=== PATIENT | female | born 1955 | race Caucasian/White ===

== ENCOUNTER 2016-12-24 16:08 | Emergency (ER) | payer MEDICARE, BC ==
[2016-12-24 16:36] VITALS: BP 115/63
--- NOTE | 2016-12-24 19:38 | EDM.PDOC ---
ED HPI LOWER BACK PAIN/INJURY - General Chief Complaint: Back Pain or Injury Stated Complaint: BACK PAIN Time Seen by Provider: 12/24/16 18:57 Source of Information: Reports: Patient, RN notes reviewed - History of Present Illness INITIAL COMMENTS - FREE TEXT/NARRATIVE: 61 year old patient tripped over a dog, slid down a half flight of stairs on her back to landing at base of steps. She has mid and low mid back pain. Hx of prior fusion T7-8 and also Lumbar fusion, hx of multiple low back surgeries all multiple yrs ago. No chest pain or difficulty breathing. Pain does not radiate down her legs. Pain is worse with motion, better to lie still. - Related Data Allergies/ADRs: Allergies Allergy/AdvReac Type Severity Reaction Status Date / Time ketorolac tromethamine Allergy Bleeding Verified 12/24/16 16:14 [From Toradol] metoclopramide HCl Allergy Anxiety Verified 12/24/16 16:14 [From Reglan] prochlorperazine Allergy Anxiety Verified 12/24/16 16:14 [From Compazine] prochlorperazine edisylate Allergy Anxiety Verified 12/24/16 16:14 [From Compazine] prochlorperazine maleate Allergy Anxiety Verified 12/24/16 16:14 [From Compazine] Home Meds: Home Meds Diclofenac Sodium [Voltaren 1% Gel] 09/25/15 [History] Hydrocodone/Acetaminophen [[place] 10-325] 1 tab PO Q4H PRN 09/25/15 [History] Metoprolol Succinate [Toprol XL] 09/25/15 [History] Ondansetron [Zofran ODT] 8 mg PO Q6H PRN 09/25/15 [History] Simvastatin [Zocor] 20 mg PO DAILY 09/25/15 [History] Coumadin. 12/24/16 [History] Cyclobenzaprine [Flexeril] 5 mg PO TID PRN #14 tablet 12/24/16 [Rx] Hydrocodone/Acetaminophen [[place] 5-325 Tablet] 1 each PO Q6HR PRN #14 tablet [Rx] Maxalt. 12/24/16 [History] Past Medical History Other Cardiovascular History: mitral valve prolapse Neurological History: Reports: Migraines - Past Surgical History GI Surgical History: Reports: Appendectomy Female Surgical History: Reports: Hysterectomy Social & Family History - Tobacco Use Smoking Status *Q: Never Smoker - Recreational Drug Use Recreational Drug Use: No ED ROS GENERAL - Review of Systems Review Of Systems: See Below Constitutional: Denies: diaphoresis HEENT: Denies: No symptoms Respiratory: Denies: Shortness of Breath, Pleuritic Chest Pain Cardiovascular: Denies: Chest pain GI/Abdominal: Denies: Abdominal pain, Nausea, Vomiting Musculoskeletal: Reports: back pain. Denies: neck pain, shoulder pain, arm pain , leg pain, joint pain Skin: Denies: bruising, rash, erythema Neurological: Denies: Dizziness, Numbness, Tingling ED EXAM,LOWER BACK PAIN/INJURY - Physical Exam Exam: See Below General Appearance: alert, no apparent distress Eye Exam: bilateral eye: PERRL Ears: normal external exam Nose: normal inspection Throat/Mouth: Normal inspection, Normal oropharynx Head: atraumatic. No: facial swelling Neck: supple, non-tender, full range of motion Respiratory/Chest: no respiratory distress, lungs clear, normal breath sounds Cardiovascular: regular rate, rhythm GI/Abdominal: soft, non tender Back Exam: normal inspection, paraspinal tenderness (L low back), vertebral tenderness (mid thoracic and low lumbar back). No: CVA tenderness (L), CVA tenderness (R) Extremities: normal range of motion, non-tender. No: no pedal edema, pedal edema, leg pain Neurological: alert, no motor/sensory deficits Course - Vital Signs Last Recorded V/S: Last Vital Signs Temp 97.1 F 12/24/16 16:18 Pulse 82 12/24/16 16:18 Resp BP 115/63 12/24/16 16:18 Pulse Ox 98 12/24/16 16:18 - Orders/Labs/Meds Orders: Active Orders 24 hr Category Date Time Status Lumbar Spine 2 or 3V [CR] Stat Exams 12/24/16 19:14 Taken Sacrum Coccyx Min 2V [CR] Stat Exams 12/24/16 19:14 Taken Thoracic Spine 2V [CR] Stat Exams 12/24/16 19:14 Taken - Re-Assessments/Exams Free Text/Narrative Re-Assessment/Exam: 12/24/16 20:22 X rays show no fx. Departure - Departure Time of Disposition: 20:22 Disposition: Home, Self-Care 01 Condition: fair Clinical Impression: Fall Qualifiers: Encounter type: initial encounter Qualified Code(s): W19.XXXA - Unspecified fall, initial encounter Back contusion Qualifiers: Encounter type: initial encounter Laterality: unspecified laterality Qualified Code(s): S20.229A - Contusion of unspecified back wall of thorax, initial encounter Prescriptions: Hydrocodone/Acetaminophen [[place] 5-325 Tablet] 1 each PO Q6HR PRN #14 tablet PRN Reason: Pain Cyclobenzaprine [Flexeril] 5 mg PO TID PRN #14 tablet PRN Reason: Pain Instructions: Fall Prevention in the Home, [id number], Contusion Referrals: PCP,Not In Area [Primary Care Provider] - Forms: ED Department Discharge Additional Instructions: rest back, alternate ice and heat as needed, tylenol for mild to moderate pain or hydrocodone if needed for more severe pain, flexeril if needed for muscle spasm, follow up with your provider if not much better within 3 to5 days as expected. - My Orders Last 24 Hours: My Active Orders 12/24/16 19:14 Lumbar Spine 2 or 3V [CR] Stat Sacrum Coccyx Min 2V [CR] Stat Thoracic Spine 2V [CR] Stat - Assessment/Plan Last 24 Hours: My Active Orders 12/24/16 19:14 Lumbar Spine 2 or 3V [CR] Stat Sacrum Coccyx Min 2V [CR] Stat Thoracic Spine 2V [CR] Stat
--- NOTE | 2016-12-27 08:33 | CR ---
Thoracic spine: AP and lateral views of the thoracic spine were obtained. Infusion catheter is seen entering from the right side. Previous lumbar spine surgery is noted. Diffuse disc space narrowing seen throughout the thoracic spine. Minimal endplate osteophytes are seen anteriorly throughout a large portion of the thoracic spine. Bony structures are osteopenic. Pedicles are intact. Minimal scoliosis is noted. Nothing acute is appreciated. Impression: 1. Previous surgery. Degenerative change and other findings. Nothing acute is definitely appreciated on two-view thoracic spine study. Diagnostic code #2
--- NOTE | 2016-12-27 08:33 | CR ---
Lumbar spine: AP, lateral and coned-down lateral views centered to the lumbosacral junction were obtained. Comparison: No previous study. Mild diffuse posterior disc space narrowing is noted. Minimal retrolisthesis noted of L1 on L2 by several millimeters. Minimal scoliosis is noted. Degenerative apophyseal change is partially visualized within the lower lumbar spine. No fracture or other abnormality is seen. Impression: 1. Degenerative change and minimal scoliosis. 2. Nothing acute is identified on three-view lumbar spine exam. Diagnostic code #2
--- NOTE | 2016-12-27 08:33 | CR ---
Sacrum and coccyx: Three views of the sacrum and coccyx were obtained. Previous lumbar spine surgery is noted. Bony structures are osteopenic. No fracture or other abnormality is seen. Impression: 1. Osteopenia. Previous lumbar spine surgery. 2. Nothing acute is identified on three-view sacrum and coccyx study. Diagnostic code #2
== END 2016-12-24 20:43 | disposition home or self-care (01) ==
LOC: JD.ED 16:08
DX: S20.229A Contusion of unspecified back wall of thorax, initial encounter (principal); Z90.49 Acquired absence of other specified parts of digestive tract; Z90.710 Acquired absence of both cervix and uterus; Z79.899 Other long term (current) drug therapy; Z88.5 Allergy status to narcotic agent; Z88.8 Allergy status to other drugs, medicaments and biological substances; W10.9XXA Fall (on) (from) unspecified stairs and steps, initial encounter
CPT/HCPCS: 72070; 72070-26; 72100; 72100-26; 72220; 72220-26; 99283; 99284

== ENCOUNTER 2017-02-27 10:42 | Emergency (ER) | payer MEDICARE, BC ==
--- NOTE | 2017-02-27 11:33 | EDM.PDOC ---
ED HPI GENERAL MEDICAL PROBLEM - General Chief Complaint: General Stated Complaint: NEED INR AND HEMOGLOBIN CHECKED Time Seen by Provider: 02/27/17 11:28 Source of Information: Reports: Patient History Limitations: Reports: No Limitations - History of Present Illness INITIAL COMMENTS - FREE TEXT/NARRATIVE: 61-year-old female presents for a check of her INR and hemoglobin. Patient is visiting name from [place], [place]. She was in [place] towards the end of last week watching her granddaughter's play tennis match. Patient reports on she noticed gross hematuria. She was seen at the [place] [facility]. She said that she had her INR checked and was found to be 17.2. She was admitted overnight and given vitamin K. Reports that Tuesday morning the hematuria had subsided. Her INR was 1.6 and she was discharge from the hospital. Patient's noticed gross hematuria again on Tuesday afternoon. She again presented to the [place] ER where her INR was checked and it was 1.1. Patient reports the hematuria subsided Tuesday. Patient reports she the ndeveloped hematuria on Tuesday and it has persisted. She is not passing much clots. She reports some minor pelvic cramping that extends into her lower abdomen. She reports that she does feel more fatigued than normal but has not slept well for the past 2 days. She reports nausea but has esophageal spasm and takes Zofran frequently for this. No change. She also reports some sharp pains in her head but she has a history of chronic migraines. She denies any nosebleeds, bleeding from her gums, diarrhea, bloody stools, lightheadedness, dizziness or vomiting. 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 [place] gave her vitamin K when her INR was 17.2. She is currently being bridged with Lovenox as well. Past surgical history includes appendectomy and hysterectomy. Patient states that her high INR was attributed to a migraine medication that she started 3 weeks ago. She does not recall the name of the medication at this time. Bladder Pain Score (Numeric/FACES): 4 Lower Back Pain Score (Numeric/FACES): 5 - Related Data Allergies Allergy/AdvReac Type Severity Reaction Status Date / Time ketorolac tromethamine Allergy Bleeding Verified 02/27/17 11:02 [From Toradol] metoclopramide HCl Allergy Anxiety Verified 02/27/17 11:02 [From Reglan] prochlorperazine Allergy Anxiety Verified 02/27/17 11:02 [From Compazine] prochlorperazine edisylate Allergy Anxiety Verified 02/27/17 11:02 [From Compazine] prochlorperazine maleate Allergy Anxiety Verified 02/27/17 11:02 [From Compazine] Home Meds: Home Meds Diclofenac Sodium [Voltaren 1% Gel] 09/25/15 [History] Hydrocodone/Acetaminophen [[place] 10-325] 1 tab PO Q4H PRN 09/25/15 [History] Metoprolol Succinate [Toprol XL] 09/25/15 [History] Ondansetron [Zofran ODT] 8 mg PO Q6H PRN 09/25/15 [History] Simvastatin [Zocor] 20 mg PO DAILY 09/25/15 [History] Coumadin. 12/24/16 [History] Cyclobenzaprine [Flexeril] 5 mg PO TID PRN #14 tablet 12/24/16 [Rx] Hydrocodone/Acetaminophen [[place] 5-325 Tablet] 1 each PO Q6HR PRN #14 tablet [Rx] Maxalt. 12/24/16 [History] Past Medical History Cardiovascular History: Reports: Blood Clots/VTE/DVT Other Cardiovascular History: mitral valve prolapse Respiratory History: Reports: PE Neurological History: Reports: Migraines - Past Surgical History GI Surgical History: Reports: Appendectomy Female Surgical History: Reports: Hysterectomy Social & Family History - Tobacco Use Smoking Status *Q: Never Smoker - Caffeine Use Caffeine Use: Reports: Coffee - Recreational Drug Use Recreational Drug Use: No ED ROS GENERAL - Review of Systems Review Of Systems: See Below Constitutional: Denies: Fever HEENT: Reports: Other (no bleeding from the gums ). Denies: Nosebleed GI/Abdominal: Reports: Abdominal Pain (minor lower abdominal pain), Nausea ( chronic no change). Denies: Bloody Stool, Diarrhea, Vomiting : Reports: Hematuria, Pain (minor pelvic pain). Denies: Dysuria, Urgency Neurological: Reports: Headache (chronic, no change ) ED EXAM, GENERAL - Physical Exam Exam: See Below Exam Limited By: No Limitations General Appearance: Alert, WD/WN, No Apparent Distress Neck: Normal Inspection, Lymphadenopathy (L) Respiratory/Chest: No Respiratory Distress, Lungs Clear, Normal Breath Sounds Cardiovascular: Normal Peripheral Pulses, Regular Rate, Rhythm, No Murmur GI/Abdominal: Normal Bowel Sounds, Soft Extremities: Normal Inspection Neurological: Alert, Oriented, Normal Cognition Psychiatric: Normal Affect, Normal Mood Skin Exam: Warm, Dry, Ecchymosis (multiple bruises to the bilteral arms likely from recent hospitalization and needle sticks) Course - Vital Signs Last Recorded V/S: Last Vital Signs Temp 36.2 C 02/27/17 10:54 Pulse 64 02/27/17 16:35 Resp 18 02/27/17 16:35 BP 120/46 L 02/27/17 16:35 Pulse Ox 100 02/27/17 16:35 - Orders/Labs/Meds Orders: Active Orders 24 hr Category Date Time Status Implanted Port Access [RC] ASDIRECTED Care 02/27/17 11:36 Active CULTURE URINE [RM] Stat Lab 02/27/17 11:30 Received Labs: Laboratory Tests 02/27/17 02/27/17 02/27/17 Range/Units 11:30 11:51 11:51 WBC 4.09 (3.98-10.04) K/mm3 RBC 3.29 L (3.98-5.22) M/mm3 Hgb 10.7 L (11.2-15.7) gm/L Hct 33.1 L (34.1-44.9) % MCV 100.6 H (79.4-94.8) fl MCH 32.5 H (25.6-32.2) pg MCHC 32.3 (32.2-35.5) g/dl RDW Std Deviation 52.3 H (36.4-46.3) fL Plt Count 175 L (182-369) K/mm3 MPV 10.2 (9.4-12.3) fl Neutrophils % (Manual) 67 H (40-60) % Band Neutrophils % 1 (0-10) % Lymphocytes % (Manual) 23 (20-40) % Atypical Lymphs % 0 % Monocytes % (Manual) 8 (2-10) % Eosinophils % (Manual) 1 (0.7-5.8) % Basophils % (Manual) 0 L (0.1-1.2) Platelet Estimate Adequate Poikilocytosis 1+ slight Anisocytosis 1+ slight PT 13.6 H (8.0-13.0) SECONDS INR 1.23 APTT (22-36) SECONDS Sodium (136-145) mEq/L Potassium (3.5-5.1) mEq/L Chloride (98-107) mEq/L Carbon Dioxide (21-32) mEq/L Anion Gap (5-15) BUN (7-18) mg/dL Creatinine (0.55-1.02) mg/dL Est Cr Clr Drug Dosing mL/min Estimated GFR (MDRD) (>60) mL/min BUN/Creatinine Ratio (14-18) Glucose (80-115) mg/dL Calcium (8.5-10.1) mg/dL Total Bilirubin (0.2-1.0) mg/dL AST (15-37) U/L ALT (14-59) U/L Alkaline Phosphatase (46-116) U/L Total Protein (6.4-8.2) g/dl Albumin (3.4-5.0) g/dl Globulin gm/dL Albumin/Globulin Ratio (1-2) Urine Color Red H (Yellow) Urine Appearance Turbid H (Clear) Urine pH 6.0 (5.0-8.0) Ur Specific [place] 1.020 (1.005-1.030) Urine Protein 3+ H (Negative) Urine Glucose (UA) Negative (Negative) Urine Ketones 1+ H (Negative) Urine Occult Blood 3+ H (Negative) Urine Nitrite Positive H (Negative) Urine Bilirubin 2+ H (Negative) Urine Urobilinogen 2.0 H (0.2-1.0) Ur Leukocyte Esterase 3+ H (Negative) Urine RBC Too numerous to cnt H (0-5) /hpf Urine WBC 40-50 H (0-5) /hpf Ur Epithelial Cells 0-5 (0-5) /hpf Urine Bacteria Moderate H (FEW) /hpf Urine Mucus Not seen (FEW) /hpf 02/27/17 02/27/17 Range/Units 11:51 11:51 WBC (3.98-10.04) K/mm3 RBC (3.98-5.22) M/mm3 Hgb (11.2-15.7) gm/L Hct (34.1-44.9) % MCV (79.4-94.8) fl MCH (25.6-32.2) pg MCHC (32.2-35.5) g/dl RDW Std Deviation (36.4-46.3) fL Plt Count (182-369) K/mm3 MPV (9.4-12.3) fl Neutrophils % (Manual) (40-60) % Band Neutrophils % (0-10) % Lymphocytes % (Manual) (20-40) % Atypical Lymphs % % Monocytes % (Manual) (2-10) % Eosinophils % (Manual) (0.7-5.8) % Basophils % (Manual) (0.1-1.2) Platelet Estimate Poikilocytosis Anisocytosis PT (8.0-13.0) SECONDS INR APTT 41 H (22-36) SECONDS Sodium 145 (136-145) mEq/L Potassium 4.2 (3.5-5.1) mEq/L Chloride 109 H (98-107) mEq/L Carbon Dioxide 28 (21-32) mEq/L Anion Gap 12.2 (5-15) BUN 12 (7-18) mg/dL Creatinine 0.7 (0.55-1.02) mg/dL Est Cr Clr Drug Dosing 74.02 mL/min Estimated GFR (MDRD) > 60 (>60) mL/min BUN/Creatinine Ratio 17.1 (14-18) Glucose 97 (80-115) mg/dL Calcium 8.5 (8.5-10.1) mg/dL Total Bilirubin 0.5 (0.2-1.0) mg/dL AST 20 (15-37) U/L ALT 19 (14-59) U/L Alkaline Phosphatase 53 (46-116) U/L Total Protein 6.3 L (6.4-8.2) g/dl Albumin 3.3 L (3.4-5.0) g/dl Globulin 3.0 gm/dL Albumin/Globulin Ratio 1.1 (1-2) Urine Color (Yellow) Urine Appearance (Clear) Urine pH (5.0-8.0) Ur Specific [place] (1.005-1.030) Urine Protein (Negative) Urine Glucose (UA) (Negative) Urine Ketones (Negative) Urine Occult Blood (Negative) Urine Nitrite (Negative) Urine Bilirubin (Negative) Urine Urobilinogen (0.2-1.0) Ur Leukocyte Esterase (Negative) Urine RBC (0-5) /hpf Urine WBC (0-5) /hpf Ur Epithelial Cells (0-5) /hpf Urine Bacteria (FEW) /hpf Urine Mucus (FEW) /hpf Meds: Medications Discontinued Medications Generic Name Dose Route Start Last Admin Trade Name Freq PRN Reason Stop Dose Admin Heparin Sodium (Porcine) Confirm 02/27/17 16:22 02/27/17 16:23 Heparin Lock Flush 100 Units/Ml Syringe Administered 02/27/17 16:23 Not Given Dose 500 units .ROUTE .STK-MED ONE Heparin Sodium (Porcine) 500 units 02/27/17 16:23 02/27/17 16:25 Heparin Lock Flush 100 Units/Ml Syringe FLUSH 02/27/17 16:24 500 units ASDIRECTED ONE Administration Iopamidol 125 ml 02/27/17 12:46 Isovue-300 (61%) IVPUSH 02/27/17 12:47 ONETIME ONE Sodium Chloride 10 ml 02/27/17 12:47 Saline Flush FLUSH ONETIME PRN Keep Vein Open - Radiology Interpretation Free Text/Narrative:: Retroperitoneal complete ultrasound impression per Dr. Galeas o1. Soft tissue abnormality within the posterior right bladder. This either represents adherent sediment or soft tissue mass. Cystoscopy is recommended to further evaluate. 2. Small abnormality within the mid right kidney of uncertain significance. MRI recommended to further evaluate. - Re-Assessments/Exams Free Text/Narrative Re-Assessment/Exam: 02/27/17 15:05 After multiple attempts, we're unable to establish an IV to get the IV contrast for CT needed. I feel that a CT without contrast would rule out a stone but would not provide additional benefit for ruling out a mass; which is what I'm most concerned about. After discussion with Dr. Gutierrez an ultrasound was decided. Patient's labs that include the following. PT is 13.6, INR is 1.23. White blood cell count is 4.09 with one bands, hemoglobin is 10.7 platelets are 175. Sodium is 145, potassium is 4.2, chloride is 109. Anion gap is 12.2. Creatinine 0.7. UA has positive nitrates, 3+ leukocytes, 1+ ketones, 3+ protein, 2+ bilirubin a moderate amount of bacteria seen on microscopy. Urine was sent for culture. I reviewed the labs and ultrasound results the patients. She is from [facility] and would like to receive further care from there. I informed her of the suspicious finding on ultrasound. She requires a cystoscope to further evaluate this. It is possible she has bladder cancer. We'll treat her with antibiotics for urinary tract infection today. I encouraged her to see her primary care provider as soon as possible she very well may require further imaging such as a CT or MRI. She should then get a referral to urology for a cystoscope. Discharge instructions as documented. Departure - Departure Time of Disposition: 15:38 Disposition: Home, Self-Care 01 Condition: fair Clinical Impression: Urinary tract infection, Hematuria - Discharge Information Instructions: Urinary Tract Infection, Adult, [id number], Hematuria, Adult Referrals: PCP,Not In Area [Primary Care Provider] - Forms: ED Department Discharge Additional Instructions: Rx for macrobid 1 tab PO bid x 7 days given through instymeds Rx for yhdrocodone 10-325 1 tab PO every 4-6 hours Follow up with your primary care provider as soon as you're able to. We recommend further imaging possibly a CT and an MRI. You need a referral to urology for a cystoscope. Your ultrasound reports and disc have been provided for you. Take the Macrobid one tab twice a day for 7 days. This is for urinary tract infection. Take the hydrocodone 10/325 every 4-6 hours as needed for severe pain. Do not drive or operative machinery with intolerance of taking hydrocodone. Please return to the ER should her symptoms change or worsen. - My Orders Last 24 Hours: My Active Orders 02/27/17 11:30 CULTURE URINE [RM] Stat 02/27/17 11:36 Implanted Port Access [RC] ASDIRECTED - Assessment/Plan Last 24 Hours: My Active Orders 02/27/17 11:30 CULTURE URINE [RM] Stat 02/27/17 11:36 Implanted Port Access [RC] ASDIRECTED
[2017-02-27] MEDS ORDERED: Iopamidol 612 MG/ML 150 ML Bottle IVPUSH ONE (12:46)
[2017-02-27] MEDS ORDERED: Sodium Chloride 0.9% 10 ML Syringe FLUSH PRN (12:47)
--- NOTE | 2017-02-27 15:23 | US ---
Limited abdominal ultrasound: Multiple real-time images of the kidneys were obtained as well as bladder. Comparison: No previous study. Soft tissue material is seen within the right posterior bladder. Uncertain if this represents soft tissue mass or adherent sediment. No additional abnormality is seen within the bladder. Kidneys show no hydronephrosis. Small hyperechoic region is seen within the mid right kidney with surrounding hypoechoic appearance. Exact significance is not certain. No additional abnormality is seen within the kidneys. Right kidney length is 10.3 cm and left kidney length is 10.0 cm. Impression: 1. Soft tissue abnormality within the posterior right bladder. This either represents adherent sediment or soft tissue mass. Cystoscopy is recommended to further evaluate. 2. Small abnormality within the mid right kidney of uncertain significance. MRI recommended to further evaluate Diagnostic code #9
[2017-02-27 17:23] VITALS: BP 120/46
== END 2017-02-27 16:35 | disposition home or self-care (01) ==
LOC: JD.ED 10:42
DX: N39.0 Urinary tract infection, site not specified (principal); R31.9 Hematuria, unspecified; Z86.711 Personal history of pulmonary embolism; Z86.718 Personal history of other venous thrombosis and embolism; Z90.49 Acquired absence of other specified parts of digestive tract; Z90.710 Acquired absence of both cervix and uterus; Z79.899 Other long term (current) drug therapy; Z88.8 Allergy status to other drugs, medicaments and biological substances
CPT/HCPCS: 36415; 76770; 80053; 81001; 85025; 85610; 85730; 87086; 99284; J1642

== ENCOUNTER 2017-03-02 03:53 | Emergency (ER) | payer MEDICARE, BC ==
[2017-03-02 04:04] VITALS: BP 112/76
--- NOTE | 2017-03-02 04:09 | EDM.PDOC ---
<Dixon Roblero - Last Filed: 03/02/17 07:00> ED HPI GENERAL MEDICAL PROBLEM - General Chief Complaint: Upper Extremity Injury/Pain Stated Complaint: left arm pain Time Seen by Provider: 03/02/17 04:09 - History of Present Illness INITIAL COMMENTS - FREE TEXT/NARRATIVE: 61-year-old female presents emergency room with left arm pain. Almost week ago the patient had a blood draw from her left arm after this she had significant bleeding into the arm with significant swelling. Her INR was over 17. She was given 20 mg of vitamin K. She was observed in the hospital overnight at another hospital and her INR dropped to 1.1 by the next morning. From that time the patient has had increasing pain in this arm over the last 3 days or so the pain has really been escalating it is aggravated with any sort of motion of the elbow mostly flexion and extension the swelling is mostly in the upper arm. She has noticed over the last couple days that the swelling in her arm has gotten firmer and she believes has gotten bigger as well. She's not having breathing difficulties with this no shortness of breath the patient is currently on Lovenox bridge therapy, and started her Coumadin this last Tuesday. 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 Patient was recently evaluated here for followup INR and CBC her H&H was 10.7 and 33.1% respectively INR was 1.23 PTT 41 this was done on the of this month. Left Upper Arm Pain Score (Numeric/FACES): 9 - Related Data Allergies Allergy/AdvReac Type Severity Reaction Status Date / Time ketorolac tromethamine Allergy Bleeding Verified 03/02/17 03:59 [From Toradol] metoclopramide HCl Allergy Anxiety Verified 03/02/17 03:59 [From Reglan] prochlorperazine Allergy Anxiety Verified 03/02/17 03:59 [From Compazine] prochlorperazine edisylate Allergy Anxiety Verified 03/02/17 03:59 [From Compazine] prochlorperazine maleate Allergy Anxiety Verified 03/02/17 03:59 [From Compazine] Home Meds: Home Meds Diclofenac Sodium [Voltaren 1% Gel] 09/25/15 [History] Hydrocodone/Acetaminophen [[place] 10-325] 1 tab PO Q4H PRN 09/25/15 [History] Metoprolol Succinate [Toprol XL] 09/25/15 [History] Ondansetron [Zofran ODT] 8 mg PO Q6H PRN 09/25/15 [History] Simvastatin [Zocor] 20 mg PO DAILY 09/25/15 [History] Coumadin. 12/24/16 [History] Cyclobenzaprine [Flexeril] 5 mg PO TID PRN #14 tablet 12/24/16 [Rx] Hydrocodone/Acetaminophen [[place] 5-325 Tablet] 1 each PO Q6HR PRN #14 tablet [Rx] Maxalt. 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: Musculoskeletal History: Reports: Arthritis, Back Pain, Chronic, Osteoporosis Neurological History: Reports: Migraines, TIA - Past Surgical History HEENT Surgical History: Reports: Tonsillectomy Other HEENT Surgeries/Procedures: Wears glasses GI Surgical History: Reports: Appendectomy Female Surgical History: Reports: Hysterectomy Social & Family History - Tobacco Use Smoking Status *Q: Never Smoker - Caffeine Use Caffeine Use: Reports: Coffee - Recreational Drug Use Recreational Drug Use: No Review of Systems - Review of Systems Review Of Systems: See Below Constitutional: Reports: No Symptoms Respiratory: Reports: No Symptoms Cardiovascular: Reports: No Symptoms GI/Abdominal: Reports: No Symptoms Genitourinary: Reports: Hematuria Musculoskeletal: Reports: Arm Pain Trauma Exam - Physical Exam Exam: See Below Exam Limited By: No Limitations General Appearance: Reports: Alert, No Apparent Distress Neck: Reports: Non-Tender, Full Range of Motion, Normal Alignment, Normal Inspection Respiratory Exam: Reports: No Respiratory Distress, Lungs Clear, Normal Breath Sounds Cardiovascular: Reports: Regular Rate, Rhythm, No Edema, No Murmur Extremities: Other (Patient has significant discomfort with any motion of her elbow especially flexion and extension. She has significant swelling of the left upper arm it is roughly twice the size of the right upper arm. It is very firm to palpation no significant erythema mild warmth radial pulses palpable but less so compared to the right neurovascular status of the hand is normal. She has mild swelling of the hand.) Course - Vital Signs Last Recorded V/S: Last Vital Signs Temp 97.6 F 03/02/17 04:01 Pulse 87 03/02/17 04:01 Resp 18 03/02/17 04:01 BP 112/76 03/02/17 04:01 Pulse Ox 100 03/02/17 04:01 - Orders/Labs/Meds Orders: Active Orders 24 hr Category Date Time Status VL Duplex Upr Ext Art Comp [US] Stat Exams 03/02/17 05:50 Taken VL Duplex Upr Ext Veins Ltd Lt [US] Stat Exams 03/02/17 05:50 Taken PATIENT RETYPE [BBK] Stat Lab 03/02/17 04:55 Results TYPE AND SCREEN [BBK] Stat Lab 03/02/17 04:55 Results Labs: Laboratory Tests 03/02/17 03/02/17 03/02/17 Range/Units 04:55 04:55 04:55 WBC 4.02 (3.98-10.04) K/mm3 RBC 3.05 L (3.98-5.22) M/mm3 Hgb 10.0 L (11.2-15.7) gm/L Hct 30.7 L (34.1-44.9) % MCV 100.7 H (79.4-94.8) fl MCH 32.8 H (25.6-32.2) pg MCHC 32.6 (32.2-35.5) g/dl RDW Std Deviation 52.2 H (36.4-46.3) fL Plt Count 134 L (182-369) K/mm3 MPV 10.0 (9.4-12.3) fl Neutrophils % (Manual) 60 (40-60) % Band Neutrophils % 0 (0-10) % Lymphocytes % (Manual) 27 (20-40) % Atypical Lymphs % 0 % Monocytes % (Manual) 8 (2-10) % Eosinophils % (Manual) 4 (0.7-5.8) % Basophils % (Manual) 1 (0.1-1.2) Platelet Estimate Adequate Polychromasia Few Anisocytosis 1+ slight Macrocytosis 1+ slight Ovalocytes 1+ slight RBC Morph Comment Not Reportable PT 41.5 H (8.0-13.0) SECONDS INR 3.51 APTT (22-36) SECONDS Sodium 143 (136-145) mEq/L Potassium 3.9 (3.5-5.1) mEq/L Chloride 109 H (98-107) mEq/L Carbon Dioxide 26 (21-32) mEq/L Anion Gap 11.9 (5-15) BUN 11 (7-18) mg/dL Creatinine 0.7 (0.55-1.02) mg/dL Est Cr Clr Drug Dosing TNP Estimated GFR (MDRD) > 60 (>60) mL/min BUN/Creatinine Ratio 15.7 (14-18) Glucose 99 (80-115) mg/dL Calcium 8.4 L (8.5-10.1) mg/dL Blood Type Gel Antibody Screen 03/02/17 03/02/17 Range/Units 04:55 04:55 WBC (3.98-10.04) K/mm3 RBC (3.98-5.22) M/mm3 Hgb (11.2-15.7) gm/L Hct (34.1-44.9) % MCV (79.4-94.8) fl MCH (25.6-32.2) pg MCHC (32.2-35.5) g/dl RDW Std Deviation (36.4-46.3) fL Plt Count (182-369) K/mm3 MPV (9.4-12.3) fl Neutrophils % (Manual) (40-60) % Band Neutrophils % (0-10) % Lymphocytes % (Manual) (20-40) % Atypical Lymphs % % Monocytes % (Manual) (2-10) % Eosinophils % (Manual) (0.7-5.8) % Basophils % (Manual) (0.1-1.2) Platelet Estimate Polychromasia Anisocytosis Macrocytosis Ovalocytes RBC Morph Comment PT (8.0-13.0) SECONDS INR APTT 93 H (22-36) SECONDS Sodium (136-145) mEq/L Potassium (3.5-5.1) mEq/L Chloride (98-107) mEq/L Carbon Dioxide (21-32) mEq/L Anion Gap (5-15) BUN (7-18) mg/dL Creatinine (0.55-1.02) mg/dL Est Cr Clr Drug Dosing Estimated GFR (MDRD) (>60) mL/min BUN/Creatinine Ratio (14-18) Glucose (80-115) mg/dL Calcium (8.5-10.1) mg/dL Blood Type B POSITIVE Gel Antibody Screen Negative Meds: Medications Discontinued Medications Generic Name Dose Route Start Last Admin Trade Name Ayanna PRN Reason Stop Dose Admin Fentanyl 50 mcg 03/02/17 04:31 03/02/17 04:58 Sublimaze IVPUSH 03/02/17 04:32 50 mcg ONETIME ONE Administration Hydromorphone HCl 0.5 mg 03/02/17 05:23 03/02/17 05:27 Dilaudid IVPUSH 03/02/17 05:24 0.5 mg ONETIME ONE Administration Hydromorphone HCl 0.5 mg 03/02/17 05:59 03/02/17 06:03 Dilaudid IVPUSH 03/02/17 06:00 0.5 mg ONETIME ONE Administration Morphine Sulfate 4 mg 03/02/17 06:36 03/02/17 06:40 Morphine IVPUSH 03/02/17 06:37 4 mg ONETIME ONE Administration Morphine Sulfate 4 mg 03/02/17 08:13 Morphine IVPUSH 03/02/17 08:14 ONETIME ONE - Re-Assessments/Exams Free Text/Narrative Re-Assessment/Exam: 03/02/17 06:07 Labs back and reviewed her hemoglobin and hematocrit is 10.0 and dirty 0.7 only a slight drop from the 28th her INR is up to 3.5 PTT is up to 93. Arterial and venous ultrasound of the upper extremity ordered. Did discuss imaging with radiology who figures this is the best initial approach to ensure good vascular supply and venous return to this extremity. 03/02/17 07:00 Change of shift. Further care and disposition per Dr. Persaud Departure - Departure Disposition: Home, Self-Care 01 Clinical Impression: Hematoma - Discharge Information Referrals: Marium Flowers MD [Primary Care Provider] - Forms: ED Department Discharge Additional Instructions: Stop the Lovenox as discussed, elevate arm as much as you can as much of the time as possible, that is what is going to get the swelling down the most quickly for you and help alleviate your current discomfort, Percocet q. 6 hours if needed for severe pain, do not drive when taking Percocet, do not take your Coumadin today, you may resume that tomorrow as prescribed, see your regular provider Tuesday as planned <Natalio Persaud - Last Filed: 03/02/17 08:21> Course - Re-Assessments/Exams Free Text/Narrative Re-Assessment/Exam: 03/02/17 08:10. Have assumed care from Dr. Roblero after change of shift. He had ordered ultrasound study with concern about vascular status of arm and forearm. That has been done. There is no evidence for clot. She does have areas of hematoma as expected. There is good arterial flow. On exam patient does have moderate swelling and areas of significant bruising. She has a good radial pulse. Her hand is warm, distal hand wrist and forearm are not swollen. There is no evidence for compartment syndrome. Her pain medicine is starting to wear off. We'll give another 4 mg morphine IV. Discharge instructions as documented Departure - Departure Time of Disposition: 08:09 Condition: fair
[2017-03-02] MEDS ORDERED: fentaNYL 100 MCG/2 ML SDV IVPUSH ONE (04:31)
[2017-03-02] MEDS ORDERED: HYDROmorphone 0.5 MG/0.5 ML Syringe IVPUSH ONE ×2 (05:23→05:59)
[2017-03-02] MEDS ORDERED: Morphine 4 MG/ML Syringe IVPUSH ONE (06:36)
[2017-03-02] MEDS ORDERED: Morphine 2 MG/ML Syringe IVPUSH ONE (08:13)
--- NOTE | 2017-03-02 09:05 | US ---
Left upper extremity venous ultrasound: Duplex and color flow imaging was obtained of the left internal jugular, subclavian, axillary, brachial, basilic, cephalic, radial and ulnar veins. Findings: Hyperechoic abnormality seen within the left forearm compatible with liquefying hematoma measuring 10.4 cm. No findings of venous thrombosis are seen. Impression: 1. 10.4 cm liquefying hematoma within the left forearm. 2. No venous thrombosis is seen. Diagnostic code #3 MTDD
--- NOTE | 2017-03-02 09:06 | US ---
Left upper extremity arterial ultrasound: Duplex and color flow imaging was obtained of the left carotid, subclavian, axillary, brachial, radial and ulnar veins. Normal flow seen within all these arteries. No significant stenosis is seen. Liquefying hematoma again noted within the left forearm. Impression: 1. Other than previously noted hematoma, no abnormality is identified on left upper extremity arterial ultrasound. Diagnostic code #3 MTDD
== END 2017-03-02 08:45 | disposition home or self-care (01) ==
LOC: JD.ED 03:53
DX: S40.022A Contusion of left upper arm, initial encounter (principal); X58.XXXA Exposure to other specified factors, initial encounter; Z86.718 Personal history of other venous thrombosis and embolism; M19.90 Unspecified osteoarthritis, unspecified site; M81.0 Age-related osteoporosis without current pathological fracture; Z86.73 Personal history of transient ischemic attack (TIA), and cerebral infarction without residual deficits; Z98.890 Other specified postprocedural states; Z90.49 Acquired absence of other specified parts of digestive tract; Z90.710 Acquired absence of both cervix and uterus; Z79.899 Other long term (current) drug therapy; Z88.6 Allergy status to analgesic agent; Z88.8 Allergy status to other drugs, medicaments and biological substances; Z79.01 Long term (current) use of anticoagulants
CPT/HCPCS: 36415; 80048; 85025; 85610; 85730; 86850; 86900; 86901; 93930; 93971; 96374; 96375; 96376; 99284; J1170; J1642; J2270; J3010

== ENCOUNTER 2020-07-14 15:02 | Emergency (ER) | payer MEDICARE ==
[2020-07-14 15:15] VITALS: BP 157/77; PULSE 75
[2020-07-14] MEDS ORDERED: HYDROmorphone 1 MG/ML Syringe IM ONE (15:33)
--- NOTE | 2020-07-14 15:43 | EDM.PDOC ---
ED HPI GENERAL MEDICAL PROBLEM - General Chief Complaint: Back Pain or Injury Stated Complaint: BACK PAIN Time Seen by Provider: 07/14/20 15:10 Source of Information: Reports: Patient, RN Notes Reviewed History Limitations: Reports: No Limitations - History of Present Illness INITIAL COMMENTS - FREE TEXT/NARRATIVE: Patient is a 65-year-old female who presents to the ED for ongoing back pain. Patient notes she has been having back pain for roughly 1 week. She does further note that she has chronic back issues, but she has not recounted any trauma or injury that she is aware of. She does have a history of a compression fracture in her thoracic spine, along with bulging disks in her neck, thoracic spine, and low back. She was seen at the [facility] for the injury this Tuesday, had plain film x-rays done, and everything seemed to be within normal limits, she reports she got a shot of Toradol and Dilaudid and that seemed to help relieve the pain. She has a primary care provider in [facility] and is on a pain contract with them, she has been using her [place] 10/5 325 mg tablets, and she states this barely takes the edge off of her pain. She states that really any sort of movement aggravates the pain quite a bit. She is not having any loss of bowel or bladder, or any other urinary issues. Patient denies any other sick-like symptoms, fever/chills, cough/shortness of breath, nausea/vomiting/diarrhea. She further notes a extensive history of osteoporosis. She notes his pain to be in the top of her lumbar spine just above the iliac crest. She is also on Flexeril for pain management. 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 Lower Back Pain Score (Numeric/FACES): 8 - Related Data Allergies Allergy/AdvReac Type Severity Reaction Status Date / Time ketorolac tromethamine Allergy Bleeding Verified 07/14/20 15:12 [From Toradol] metoclopramide HCl Allergy Anxiety Verified 07/14/20 15:12 [From Reglan] prochlorperazine Allergy Anxiety Verified 07/14/20 15:12 [From Compazine] prochlorperazine edisylate Allergy Anxiety Verified 07/14/20 15:12 [From Compazine] prochlorperazine maleate Allergy Anxiety Verified 07/14/20 15:12 [From Compazine] Home Meds: Home Meds Diclofenac Sodium [Voltaren 1% Gel] 09/25/15 [History] Hydrocodone/Acetaminophen [[place] 10-325] 1 tab PO Q4H PRN 09/25/15 [History] Metoprolol Succinate [Toprol XL] 100 mg PO BID 09/25/15 [History] Ondansetron [Zofran ODT] 8 mg PO Q6H PRN 09/25/15 [History] Coumadin. 12/24/16 [History] Cyclobenzaprine [Flexeril] 5 mg PO TID PRN #14 tablet 12/24/16 [Rx] Maxalt. 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: Musculoskeletal History: Reports: Arthritis, Back Pain, Chronic (compression fracture in thoracic spine, bulged discs in neck, thoracic and lumbar spine.), Osteoporosis Neurological History: Reports: Migraines, TIA - Past Surgical History HEENT Surgical History: Reports: Tonsillectomy GI Surgical History: Reports: Appendectomy Female Surgical History: Reports: Hysterectomy Musculoskeletal Surgical History: Reports: Other (See Below) (kyphoplasty for thoracic compression fx) Social & Family History - Tobacco Use Smoking Status *Q: Never Smoker - Caffeine Use Caffeine Use: Reports: Coffee - Recreational Drug Use Recreational Drug Use: No ED ROS GENERAL - Review of Systems Review Of Systems: Comprehensive ROS is negative, except as noted in HPI. ED EXAM,LOWER BACK PAIN/INJURY - Physical Exam Exam: See Below Exam Limited By: No Limitations General Appearance: Alert, WD/WN, No Apparent Distress Respiratory/Chest: No Respiratory Distress, Lungs Clear, Normal Breath Sounds, No Accessory Muscle Use, Chest Non-Tender Cardiovascular: Normal Peripheral Pulses, Regular Rate, Rhythm, No Murmur Extremities: Normal Inspection, Normal Capillary Refill Neurological: Alert, Normal Mood/Affect, Normal Dorsiflexion, Normal Plantar Flexion, Normal Gait, No Motor/Sensory Deficits, Oriented x 3. No: Straight Leg Raise (L), Straight Leg Raise (R), Saddle Anesthesia Psychiatric: Normal Affect, Normal Mood Skin Exam: Warm, Dry, Intact, Normal Color, No Rash Course - Vital Signs Last Recorded V/S: Last Vital Signs Temp 97.8 F 07/14/20 15:08 Pulse 75 07/14/20 15:08 Resp 16 07/14/20 15:08 BP 157/77 H 07/14/20 15:08 Pulse Ox 93 L 07/14/20 15:08 - Orders/Labs/Meds Orders: Active Orders 24 hr Category Date Time Status Lumbar Spine wo Cont [CT] Stat Exams 07/14/20 15:33 Taken Meds: Medications Discontinued Medications Generic Name Dose Route Start Last Admin Trade Name Freq PRN Reason Stop Dose Admin Hydromorphone HCl 1 mg 07/14/20 15:33 07/14/20 15:39 Dilaudid IM 07/14/20 15:34 1 mg ONETIME ONE Administration - Re-Assessments/Exams Free Text/Narrative Re-Assessment/Exam: 07/14/20 15:43 Patient presents to the ED for the evaluation of her ongoing back pain. We will give her 1 mg injection of Dilaudid, and obtain a lumbar CT for further imaging as she has had negative plain films. She does have a history of osteoporosis, bulges, and a compression fracture within the thoracic spine. Patient was very forthcoming about being on a pain contract with a provider in [place], she was told that if she believes she necessitated an ER visit, that pain management in the ER was okay. 07/14/20 16:[address] demonstrates a suspected acute mild compression fracture of the inferior endplate of L2. This can be further assessed with lumbar spine MRI as indicated. There are other chronic compression deformities of L4 and L5. This would correlate to where she is having pain. Departure - Departure Time of Disposition: 16:58 Disposition: Home, Self-Care 01 Condition: Good Clinical Impression: Nontraumatic compression fracture of L2 vertebra Qualifiers: Encounter type: initial encounter Qualified Code(s): M48.56XA - Collapsed vertebra, not elsewhere classified, lumbar region, initial encounter for fracture - Discharge Information *PRESCRIPTION DRUG MONITORING PROGRAM REVIEWED*: Yes *COPY OF PRESCRIPTION DRUG MONITORING REPORT IN PATIENT MIKE: No Instructions: Chronic Back Pain, [id number] Referrals: PCP,Not In Area [Primary Care Provider] - Forms: ED Department Discharge Additional Instructions: You have been evaluated in the ED for your ongoing back pain. Your CT demonstrated an acute compression fracture that is mild of your second lumbar vertebrae. There are also chronic mild compression deformities of the fourth and fifth lumbar vertebrae as well. I do suspect that the compression fracture from L2 is where you are getting the pain from. Please use ice as tolerated to the affected area. You may elevate the affected area to provide further relief from swelling. You may take Tylenol 500 mg or ibuprofen 600mg q6 hrs for pain relief. Please do so until you have a tolerable level of pain with activity. Do not exceed 4000mg Tylenol, Do not exceed 3200mg ibuprofen in a 24 hour time period. You were given a prescription for a strong pain medication, oxycodone/acetaminophen 5/325, please take 1 tab every 6 hours as needed for pain not relieved by Tylenol or ibuprofen alone. Please note this does contain Tylenol in it, so do not take more than 4000 mg in a 24-hour time span. These medications can be addictive, so please take as few as possible to achieve adequate pain control. These meds can also be quite constipating, recommend that you increase your oral fluid intake and take a stool softener like MiraLAX while taking these medications. Please call Ortho for follow-up and further evaluation Dr. Patterson is our orthopedic surgeon, his office number is [phone]. Please call and set up an appointment as soon as possible for further management. Please return to ED if your symptoms should change or worsen. Sepsis Event Note (ED) - Evaluation Sepsis Screening Result: No Definite Risk - Focused Exam Vital Signs: Vital Signs Temp Pulse Resp BP Pulse Ox 07/14/20 15:08 97.8 F 75 16 157/77 H 93 L - My Orders Last 24 Hours: My Active Orders 07/14/20 15:33 Lumbar Spine wo Cont [CT] Stat - Assessment/Plan Last 24 Hours: My Active Orders 07/14/20 15:33 Lumbar Spine wo Cont [CT] Stat
[2020-07-14] MEDS ORDERED: Ketorolac 60 MG/2 ML SDV IM ONE (17:05)
== END 2020-07-14 17:20 | disposition home or self-care (01) ==
LOC: JD.ED 15:02
DX: M48.56XA Collapsed vertebra, not elsewhere classified, lumbar region, initial encounter for fracture (principal); Z88.6 Allergy status to analgesic agent; Z88.8 Allergy status to other drugs, medicaments and biological substances; Z79.01 Long term (current) use of anticoagulants; Z79.899 Other long term (current) drug therapy; Z86.718 Personal history of other venous thrombosis and embolism; Z86.711 Personal history of pulmonary embolism; Z86.73 Personal history of transient ischemic attack (TIA), and cerebral infarction without residual deficits
CPT/HCPCS: 72131; 96372; 99283; J1170; J1885

== ENCOUNTER 2020-07-18 08:48 | Emergency (ER) | payer MEDICARE ==
[2020-07-18 09:58] VITALS: BP 150/80; PULSE 78
[2020-07-18] MEDS ORDERED: HYDROmorphone 1 MG/ML Syringe IM ONE (10:16)
[2020-07-18] MEDS ORDERED: Ketorolac 60 MG/2 ML SDV IM ONE (10:17)
--- NOTE | 2020-07-18 10:22 | EDM.PDOC ---
ED HPI GENERAL MEDICAL PROBLEM - General Chief Complaint: Back Pain or Injury Stated Complaint: BACK PAIN Time Seen by Provider: 07/18/20 09:58 Source of Information: Reports: Patient History Limitations: Reports: No Limitations - History of Present Illness INITIAL COMMENTS - FREE TEXT/NARRATIVE: The patient presents with low back pain. She has a history of low back pain. She has some bulging discs. She is here int town baby sitting. She had pain for over a week and before she left she went to the [facility] and had an x-ray and a shot of toradol and dilaudid and felt better. She was seen here a couple days ago and she had a CT of her lumbar spine and it showed an L2 compression fracture. She was given some precocet but she is almost out. She is going home on Tuesday and she has an appointment with her doctor on Tuesday. She has no numbness or weakness. She has no bowel or bladder problems. She has pain to her low back. Onset: Gradual Duration: Week(s): Location: Reports: Back Quality: Reports: Sharp Severity: Severe Improves with: Reports: Immobilization Worsens with: Reports: Movement Context: Denies: Trauma Associated Symptoms: Reports: No Other Symptoms Back Pain Score (Numeric/FACES): 5 - Related Data Allergies Allergy/AdvReac Type Severity Reaction Status Date / Time ketorolac tromethamine Allergy Bleeding Verified 07/14/20 15:12 [From Toradol] metoclopramide HCl Allergy Anxiety Verified 07/14/20 15:12 [From Reglan] prochlorperazine Allergy Anxiety Verified 07/14/20 15:12 [From Compazine] prochlorperazine edisylate Allergy Anxiety Verified 07/14/20 15:12 [From Compazine] prochlorperazine maleate Allergy Anxiety Verified 07/14/20 15:12 [From Compazine] Home Meds: Home Meds Diclofenac Sodium [Voltaren 1% Gel] 09/25/15 [History] Hydrocodone/Acetaminophen [[place] 10-325] 1 tab PO Q4H PRN 09/25/15 [History] Metoprolol Succinate [Toprol XL] 100 mg PO BID 09/25/15 [History] Ondansetron [Zofran ODT] 8 mg PO Q6H PRN 09/25/15 [History] Coumadin. 12/24/16 [History] Cyclobenzaprine [Flexeril] 5 mg PO TID PRN #14 tablet 12/24/16 [Rx] Maxalt. 12/24/16 [History] Acetaminophen/oxyCODONE [Percocet 325-5 MG] 1 each PO Q6H PRN #12 tab 07/14/20 [Rx] atorvaSTATin [Lipitor] 20 mg PO BEDTIME 07/14/20 [History] oxyCODONE HCl/Acetaminophen [Percocet 5-325 mg Tablet] 1 - 2 each PO Q6HR PRN #20 tablet 07/18/20 [Rx] Past Medical History HEENT History: Reports: Impaired Vision Cardiovascular History: Reports: Blood Clots/VTE/DVT, Other (See Below) Other Cardiovascular History: mitral valve prolapse Respiratory History: Reports: PE Gastrointestinal History: Reports: Other (See Below) Other Gastrointestinal History: Esophageal spasm Other Genitourinary History: Mass on bladder [employer] History: Reports: Musculoskeletal History: Reports: Arthritis, Back Pain, Chronic, Osteoporosis Neurological History: Reports: Migraines, TIA - Past Surgical History HEENT Surgical History: Reports: Tonsillectomy GI Surgical History: Reports: Appendectomy Female Surgical History: Reports: Hysterectomy Musculoskeletal Surgical History: Reports: Other (See Below) Social & Family History - Tobacco Use Tobacco Use Status *Q: Never Tobacco User Second Hand Smoke Exposure: No - Caffeine Use Caffeine Use: Reports: Coffee - Recreational Drug Use Recreational Drug Use: No ED ROS GENERAL - Review of Systems Review Of Systems: See Below Constitutional: Reports: No Symptoms HEENT: Reports: No Symptoms Respiratory: Reports: No Symptoms Cardiovascular: Reports: No Symptoms Endocrine: Reports: No Symptoms GI/Abdominal: Reports: No Symptoms : Reports: No Symptoms Musculoskeletal: Reports: Back Pain Skin: Reports: No Symptoms Neurological: Reports: No Symptoms ED EXAM,LOWER BACK PAIN/INJURY - Physical Exam Exam: See Below Exam Limited By: No Limitations General Appearance: Alert, No Apparent Distress Ears: Normal External Exam Nose: Normal Inspection Head: Atraumatic, Normocephalic Neck: Normal Inspection Respiratory/Chest: No Respiratory Distress, Lungs Clear, Normal Breath Sounds Cardiovascular: Regular Rate, Rhythm, No Edema, No Murmur GI/Abdominal: Soft, Non-Tender, No Organomegaly, No Mass Back Exam: Other (Mild pain upon palpation to the lumbar spine) Extremities: Normal Inspection Neurological: Alert, No Motor/Sensory Deficits, Oriented x 3 Course - Vital Signs Last Recorded V/S: Last Vital Signs Temp 97.3 F 07/18/20 09:50 Pulse 78 07/18/20 09:50 Resp 18 07/18/20 09:50 BP 150/80 H 07/18/20 09:50 Pulse Ox 95 07/18/20 09:50 - Orders/Labs/Meds Orders: Active Orders 24 hr Category Date Time Status HYDROmorphone [Dilaudid] Med 07/18/20 10:16 Once 1 mg IM ONETIME ONE Ketorolac [Toradol] Med 07/18/20 10:17 Once 60 mg IM ONETIME ONE - Re-Assessments/Exams Free Text/Narrative Re-Assessment/Exam: 07/18/20 10:21 I ordered dilaudid 1mg IM and toradol 60mg IM. She is not allergic to toradol. She is on coumadin and was told to be careful taking the toradol with it. Departure - Departure Time of Disposition: 10:25 Disposition: Home, Self-Care 01 Condition: Good Clinical Impression: Nontraumatic compression fracture of L2 vertebra Qualifiers: Encounter type: initial encounter Qualified Code(s): M48.56XA - Collapsed vertebra, not elsewhere classified, lumbar region, initial encounter for fracture - Discharge Information *PRESCRIPTION DRUG MONITORING PROGRAM REVIEWED*: No *COPY OF PRESCRIPTION DRUG MONITORING REPORT IN PATIENT MIKE: No Prescriptions: oxyCODONE HCl/Acetaminophen [Percocet 5-325 mg Tablet] 1 - 2 each PO Q6HR PRN #20 tablet PRN Reason: Pain Referrals: PCP,Not In Area [Primary Care Provider] - Additional Instructions: Take your medicine as prescribed. Follow up with your doctor on Tuesday. Please return if you are worse. Sepsis Event Note (ED) - Evaluation Sepsis Screening Result: No Definite Risk - Focused Exam Vital Signs: Vital Signs Temp Pulse Resp BP Pulse Ox 07/18/20 09:50 97.3 F 78 18 150/80 H 95 - My Orders Last 24 Hours: My Active Orders 07/18/20 10:16 HYDROmorphone [Dilaudid] 1 mg IM ONETIME ONE 07/18/20 10:17 Ketorolac [Toradol] 60 mg IM ONETIME ONE - Assessment/Plan Last 24 Hours: My Active Orders 07/18/20 10:16 HYDROmorphone [Dilaudid] 1 mg IM ONETIME ONE 07/18/20 10:17 Ketorolac [Toradol] 60 mg IM ONETIME ONE
== END 2020-07-18 10:40 | disposition home or self-care (01) ==
LOC: JD.ED 08:48
DX: M48.56XA Collapsed vertebra, not elsewhere classified, lumbar region, initial encounter for fracture (principal); Z88.6 Allergy status to analgesic agent; Z88.8 Allergy status to other drugs, medicaments and biological substances; Z79.01 Long term (current) use of anticoagulants; Z79.899 Other long term (current) drug therapy; Z86.711 Personal history of pulmonary embolism; Z86.718 Personal history of other venous thrombosis and embolism; Z86.73 Personal history of transient ischemic attack (TIA), and cerebral infarction without residual deficits
CPT/HCPCS: 96372; 99283; J1170; J1885